=== PATIENT | male | born 1975 | race Native Hawaiian/Other Pacific Islander ===

== ENCOUNTER 2018-06-11 09:19 | Emergency (ER) | payer OTHER ==
[2018-06-11] MEDS ORDERED: ORPHENADRINE 30 MG/ML 2 ML VIAL IVP STA (09:29)
[2018-06-11] MEDS ORDERED: KETOROLAC 30 MG/ML 1 ML VIAL IVP STA (09:29)
--- NOTE | 2018-06-11 09:33 | ED ---
Back Pain HPI - General Chief Complaint: Back Pain/Injury Stated Complaint: Back pain Time Seen by Provider: 06/11/18 09:21 Source: patient, EMS, RN notes reviewed Limitations: no limitations - History of Present Illness Initial Comments: This is a 42-year-old male with history of chronic back pain and degenerative disc disease who presents to the emergency department with chief complaint of low back pain. Patient states that he went to get up out of bed this morning and was unable to due to pain in the low back. He states that it is left sided. He states that he called EMS for transport. EMS reports that patient was unable to get out of bed and they had to carry him out with a chair. They gave him 5mg of morphine and 4mg of Zofran. Patient states that this helped with the pain. He denies any falls, injuries or trauma. Denies saddle paresthesias or loss of bladder or bowel function. Denies numbness or tingling. Denies abdominal pain, nausea or vomiting. Patient states that he takes no medications for his back pain and recently established care with a new primary care provider, however he is unsure of the name. - Related Data Previous Rx's Medication Instructions Recorded FLUoxetine HCL [PROzac] 40 mg PO DAILY #60 cap 06/05/16 Lisinopril [Zestril] 40 mg PO DAILY #60 tab 06/05/16 Cyclobenzaprine [Flexeril] 10 mg PO TID #12 tab 06/11/18 Ibuprofen 600 mg PO Q6HR #30 tablet 06/11/18 Allergies Allergy/AdvReac Type Severity Reaction Status Date / Time buspirone [From BuSpar] Allergy Unknown Verified 06/11/18 09:38 quetiapine [From Seroquel] Allergy Unknown Verified 06/11/18 09:38 trazodone Allergy Unknown Verified 06/11/18 09:38 Review of Systems ROS Statement: Those systems with pertinent positive or pertinent negative responses have been documented in the HPI. ROS Other: All systems not noted in ROS Statement are negative. Past Medical History Past Medical History: Hypertension Additional Past Medical History / Comment(s): degenerative disc disease History of Any Multi-Drug Resistant Organisms: None Reported Past Surgical History: Appendectomy Additional Past Surgical History / Comment(s): Left eye sx Past Psychological History: Anxiety, Bipolar, Depression Smoking Status: Current every day smoker Past Alcohol Use History: Occasional Past Drug Use History: Marijuana General Exam - General Exam Comments Initial Comments: General: Awake and alert, well-developed; in mild distress due to pain. Patient is able to actively move legs. He is able to sit up without assistance but does so with difficulty due to pain. HEENT: Head atraumatic, normocephalic. Pupils are equal, round and reactive to light. Extraocular movements intact. Oropharynx moist without erythema or exudate. Neck: Supple. Normal ROM. Cardiovascular: Regular rate and rhythm. No murmurs, rubs or gallops. Chest symmetrical. Pedal and posterior tibial pulses are 2+ equal and palpable bilaterally. Respiratory: Lungs clear to auscultation bilaterally. No wheezes, rales or rhonchi. Normal respiratory effort with no use of accessory muscles. Abdomen: Soft, non-tender, non-distended. No rigidity, rebound or guarding. Normal bowel sounds in all 4 quadrants. Musculoskeletal: Normal ROM, no tenderness bilateral upper and lower extremities. Skin: Marvell, warm and dry without rashes or lesions. Neurological: Alert and oriented x3. CN II-XII grossly intact. Speech is fluent and answers are appropriate. No focal neuro deficits. Limitations: no limitations Back exam: Present: normal inspection, tenderness (left posterior pelvis and SI joint ), paraspinal tenderness (left lumbar). Absent: CVA tenderness (R), CVA tenderness (L), vertebral tenderness Course Vital Signs 06/11/ 09:23 Temperature 98.1 F Pulse Rate 81 Respiratory 16 Rate Blood Pressure 140/86 O2 Sat by Pulse 98 Oximetry Medical Decision Making - Medical Decision Making This is a 42-year-old male with history of chronic back pain who presents to the emergency department with chief complaint of back pain. Patient reports getting out of bed this morning and not being able to due to the back pain. Denies falls, injuries or trauma. Denies saddle paresthesias or loss of bladder or bowel function. Patient is able to sit up without assistance. He is moving his legs actively. He is neurovascularly intact. Review of MRI in 2016 was performed. This revealed evidence for changes in L4, L5 and S1. Patient was given pain medication and muscle relaxer. Vital signs are stable. He will be discharged home at this time. He will be provided with prescriptions for ibuprofen and Flexeril. Recommended following up with his primary care provider. Patient is in agreement with plan and voices understanding. All questions answered. Disposition Clinical Impression: Acute exacerbation of chronic low back pain Disposition: HOME SELF-CARE Condition: Good Instructions: Acute Low Back Pain (ED) Additional Instructions: Please follow up with primary care provider within 1-2 days. Return to emergency department if symptoms should worsen or any concerns arise. Prescriptions: Cyclobenzaprine [Flexeril] 10 mg PO TID #12 tab Ibuprofen 600 mg PO Q6HR #30 tablet Is patient prescribed a controlled substance at d/c from ED?: No Referrals: None,Stated [Primary Care Provider] - 1-2 days Time of Disposition: 09:49
[2018-06-11] MEDS ORDERED: DEXAMETHASONE SOD PHOSPHATE 10 MG/ML 1 ML VIAL IV STA (10:18)
[2018-06-11 11:15] LABS: Basophils % (A) 0 %; Eosinophils # (A) 0.1 k/uL (0-0.7); Eosinophils % (A) 1 %; HCT 41.4 % (39.0-53.0); Lymphocytes # (A) 1.2 k/uL (1.0-4.8); Lymphocytes % (A) 13 %; MCH 31.2 pg (25.0-35.0); MCHC 33.9 g/dL (31.0-37.0); Mean Platelet Volume 8.1; Monocytes # (A) 0.5 k/uL (0-1.0); Monocytes % (A) 6 %; Neutrophils # (A) 7.1 k/uL (1.3-7.7); Neutrophils % (A) 79 %; Platelet Count 168 k/uL (150-450); RBC 4.49 m/uL (4.30-5.90); WBC 8.9 k/uL (3.8-10.6)
[2018-06-11 11:23] LABS: ALT 34 U/L (21-72); AST 25 U/L (17-59); Albumin 3.5 g/dL (3.5-5.0); Alkaline Phosphatase 71 U/L (38-126); Anion Gap 5 mmol/L; Blood Urea Nitrogen 16 mg/dL (9-20); Calcium 8.8 mg/dL (8.4-10.2); Carbon Dioxide 25 mmol/L (22-30); Chloride 109 mmol/L (98-107); Glucose 106 mg/dL (74-99); Magnesium 1.8 mg/dL (1.6-2.3); Potassium 4.2 mmol/L (3.5-5.1); Sodium 139 mmol/L (137-145); Total Bilirubin 0.3 mg/dL (0.2-1.3); Total Protein 5.9 g/dL (6.3-8.2)
--- NOTE | 2018-06-11 11:44 | CT ---
EXAMINATION TYPE: CT lumbar spine wo con DATE OF EXAM: 06/11/2018 COMPARISON: None HISTORY: Low back pain CT DLP: 686.4 mGycm CONTRAST: None TECHNIQUE: CT of the lumbar spine is performed on a spiral scan at 3 mm thick sections. Reconstructed images are performed in the coronal and sagittal planes. FINDINGS: T12-L1: No focal disc herniation or significant disc bulge is evident. No spinal canal stenosis or neural foraminal stenosis is present. L1-L2: No focal disc herniation or significant disc bulge is evident. No spinal canal stenosis or n eural foraminal stenosis is present L2-L3: No focal disc herniation or significant disc bulge is evident. No spinal canal stenosis or n eural foraminal stenosis is present L3-L4: No focal disc herniation or significant disc bulge is evident. No spinal canal stenosis or n eural foraminal stenosis is present L4-L5: Facet hypertrophy and minimal disc bulge are contributing to some lateral canal narrowing at L 5-4-5. No AP spinal canal stenosis is present. L5-S1: There is a grade 1 approaching grade 2 spondylolisthesis of L5 anterior on S1. There is loss o f disc height. Disc uncovering is present. Sclerotic changes are along the endplates of L5-S1. Facet hypertrophy is present contributing to lateral canal stenosis. IMPRESSION: 1. Grade 1 to grade 2 spondylolisthesis of L5 anterior on S1. 2. Loss of disc height and disc uncovering L5-S1. In conjunction with the spondylolisthesis AP spinal canal stenosis is not present. Facet hypertrophy however it is causing lateral canal stenosis. 3. Mild disc bulging and facet hypertrophy L4-5 with milder lateral canal narrowing
[2018-06-11 12:44] VITALS: BP 141/70; PULSE 83; RESP 18; TEMP 97.6
== END 2018-06-11 12:44 | disposition home or self-care (01) ==
LOC: EC 09:19
DX: M54.5 Low back pain (principal); G89.29 Other chronic pain; F17.200 Nicotine dependence, unspecified, uncomplicated; Z88.8 Allergy status to other drugs, medicaments and biological substances
CPT/HCPCS: 36415; 80053; 83735; 85025; 72131; 99285; 96374; 96375 ×2; J1100; J2360; J1885